=== PATIENT | male | born 1980 | race Two or more races ===

== ENCOUNTER → 2022-05-18 | Outpatient (CLI) | payer OTHER, SELFPAY ==
--- NOTE | 2022-05-18 11:43 | RAD_ITS ---
STUDY: X-RAY - LEFT KNEE REASON FOR EXAM: Male, 42 years old. Left knee pain. TECHNIQUE: 5 view(s) of the knee. COMPARISON: None. FINDINGS: Osteopenia. Mild arthrosis of the medial femorotibial compartment. Moderate arthrosis of the lateral femorotibial compartment. Slight lateral subluxation of the patella with mild arthrosis of the patellofemoral compartment. Joint effusion. RAD/Knee 4 or More Views IMPRESSION: Osteopenia with tricompartmental arthrosis as described. Small joint effusion. Electronically Signed: Mitchell Childs, at 13:56 EST ,
[2022-05-18 15:46] LABS: Anion Gap 5 (5-15); BUN 10 mg/dL (7-18); BUN/Creat Ratio 12.7 RATIO (10-20); Calcium,Total 9.3 mg/dL (8.5-10.1); Chloride 105 mmol/L (98-107); Cholesterol 139 mg/dL (200); Creatinine, Serum 0.78 mg/dL (0.70-1.30); EST Glomerular Filtration Rate 116 mL/min (>60); Est Glom Filt Rate - Afr Amer 140 mL/min (>60); Glucose 101 mg/dL (74-106); High Density Lipoprotein 38 mg/dL; Potassium 4.4 mmol/L (3.5-5.1); Sodium Level 139 mmol/L (136-145); Triglycerides 71 mg/dL; Very Low Density Lipoprotein 14 mg/dL (5-40)
== END | disposition home or self-care (01) ==
LOC: MTLAB 11:40
PROVIDERS: PCP Family Medicine; Referring Provider Family Medicine; Visit Provider Family Medicine
DX: M25.562 Pain in left knee (principal); Z13.1 Encounter for screening for diabetes mellitus; Z13.220 Encounter for screening for lipoid disorders
CPT/HCPCS: 36415; 73564; 80048; 80061